=== PATIENT | male | born 1965 | race Two or more races ===

== ENCOUNTER 2021-05-04 18:32 | Emergency (ER) | payer OTHER ==
[~2021-05-04] VITALS: Ht 185.4 cm; Wt 59.0 kg
[2021-05-04] MEDS ORDERED: CHILDREN'S ASPI81 MG PO (18:37)
[2021-05-04] MEDS ORDERED: DUI500 PO (21:08)
[2021-05-04] MEDS ORDERED: LASIX20 MG PO (21:08)
== END 2021-05-04 21:22 | disposition home or self-care (01) ==
LOC: ER 18:32
DX: R60.0 Localized edema (principal)

== ENCOUNTER → 2023-12-05 | Emergency (ER) | payer OTHER ==
[~2023-12-05] VITALS: Ht 182.9 cm; Wt 68.0 kg
[~2023-12-05] MED LIST: CHILDREN'S ASPI81 MG PO; DUI500 PO; LASIX20 MG PO; NEURONTIN300 MG PO
[2023-12-05 08:47] VITALS: BP 140/92; O2SAT 97
[2023-12-05 09:34] LABS: PH,URINE 5.5 (5.0-8.0); URINE APPEARANCE Clear; URINE BILIRRUBIN Negative (NEGATIVE); URINE BLOOD Negative; URINE COLOR Yellow; URINE GLUCOSE Negative (NEGATIVE); URINE KETONE Trace (NEGATIVE); URINE LEUKOCYTE Trace; URINE NITRATE Negative; URINE PROTEIN Negative (NEGATIVE)
[2023-12-05 09:35] LABS: URINE BACTERIA 13.8 uL (0.0-1933); URINE EPITHELIAL CELLS 1.5 uL (0.0-38.8); URINE RBC 2.7 uL (0.0-20.8); URINE WBC 7.3 uL (0.0-23.2)
[2023-12-05 10:04] LABS: INR 1.09; PARTIAL THROMBOPLASTIN TIME 27.9 SECONDS (22.0-34.0); PROTHROMBIN TIME 11.8 SECONDS (9.0-11.5)
[2023-12-05 10:05] LABS: HEMATOCRIT 44.6 % (39.0-48.0); HEMOGLOBIN 15.2 g/dL (13-16.00); MEAN CELL VOLUME 98.6 fL (80.0-100.00); MEAN CORPUSCULAR HEMOGLOBIN 33.7 pg (27.00-32.0); MEAN CORPUSCULAR HGB CONC 34.1 g/dl (32.0-36.0); PLATELET COUNT 186 K/uL (150-450); RED BLOOD COUNT 4.53 M/uL (4.00-6.00)
[2023-12-05 11:00] LABS: ALBUMIN 3.9 gm/dL (3.4-5.0); BILIRUBIN TOTAL 0.4 mg/dL (0.3-1.2); CALCIUM 9.3 mg/dL (8.5-10.1); CREATININE SERUM 0.89 mg/dL (0.70-1.30); GFR 87.79; GLOBULINA 3.8 G/DL (2.4-3.5); POTASSIUM 4.18 mEq/L (3.5-5.1); TOTAL PROTEIN 7.7 gm/dL (6.4-8.2)
== END | disposition home or self-care (01) ==
LOC: ER 08:43
PROVIDERS: General Practice
DX: I99.8 Other disorder of circulatory system (principal)

== ENCOUNTER 2024-01-19 11:13 | Emergency (ER) | payer OTHER ==
[~2024-01-19] VITALS: Ht 185.4 cm; Wt 67.6 kg
[2024-01-19] MEDS ORDERED: NAPR500T14 (12:04)
[2024-01-19] MEDS ORDERED: PIPERACILLIN/TAZOBACTAM SODIUM 3.375 GM VIAL IV ONE (12:30)
[2024-01-19] MEDS ORDERED: 0.9 % SODIUM CHLORIDE 1,000 ML IV ONE (12:30)
[2024-01-19 13:27] LABS: HEMATOCRIT 39.7 % (39.0-48.0); HEMOGLOBIN 13.5 g/dL (13-16.00); MEAN CELL VOLUME 99.2 fL (80.0-100.00); MEAN CORPUSCULAR HEMOGLOBIN 33.7 pg (27.00-32.0); PLATELET COUNT 207 K/uL (150-450); RED CELL DISTRIBUTION WIDTH 13.4 % (11.5-14.5)
[2024-01-19 13:42] LABS: PARTIAL THROMBOPLASTIN TIME 28.2 SECONDS (22.0-34.0); PROTHROMBIN TIME 10.9 SECONDS (9.0-11.5)
[2024-01-19 13:46] LABS: PH,URINE 6.5 (5.0-8.0); URINE APPEARANCE Clear; URINE BILIRRUBIN Negative (NEGATIVE); URINE BLOOD Negative; URINE COLOR Yellow; URINE GLUCOSE Negative (NEGATIVE); URINE KETONE Negative (NEGATIVE); URINE LEUKOCYTE Small; URINE NITRATE Negative; URINE PROTEIN Negative (NEGATIVE)
[2024-01-19 13:48] LABS: ALBUMIN 3.5 gm/dL (3.4-5.0); BILIRUBIN TOTAL 0.32 mg/dL (0.3-1.2); CALCIUM 8.8 mg/dL (8.5-10.1); CREATININE SERUM 0.7 mg/dL (0.70-1.30); GFR 115.43; GLOBULINA 4.1 G/DL (2.4-3.5); POTASSIUM 3.66 mEq/L (3.5-5.1); TOTAL PROTEIN 7.6 gm/dL (6.4-8.2)
[2024-01-19 13:50] LABS: URINE BACTERIA 36.7 uL (0.0-1933); URINE EPITHELIAL CELLS 1.8 uL (0.0-38.8); URINE RBC 7.3 uL (0.0-20.8); URINE WBC 104.1 uL (0.0-23.2)
[2024-01-19 14:33] LABS: URINE CAST 0.14 uL (0.0-1.40)
== END 2024-01-19 15:52 | disposition home or self-care (01) ==
LOC: ER 11:15
PROVIDERS: General Practice
DX: I83.003 Varicose veins of unspecified lower extremity with ulcer of ankle (principal); L97.309 Non-pressure chronic ulcer of unspecified ankle with unspecified severity; M79.661 Pain in right lower leg